=== PATIENT | female | born 1970 | race Caucasian/White ===

== ENCOUNTER 2019-04-15 03:57 | Emergency (ER) | payer SELFPAY ==
[~2019-04-15] VITALS: Ht 160 cm; Wt 70.0 kg
[2019-04-15] MEDS ORDERED: SODIUM CHLORIDE 0.9% 1,000 ML IV ONE (06:23)
[2019-04-15 08:02] LABS: BASOPHILS % 0.4 % (0.0-2.0); EOSINOPHILS % 0.6 % (0.0-5.0); HEMATOCRIT. 39.7 % (36.0-48.0); HEMOGLOBIN. 13.6 g/dL (12.0-16.0); LYMPHOCYTES % 48.6 % (20.0-50.0); MEAN CORPUSCULAR HEMOGLOBIN 28.8 pg (28.0-32.0); MEAN CORPUSCULAR VOLUME 83.8 fL (81.0-99.0); MEAN PLATELET VOLUME 8.2 fl (7.4-10.4); MONOCYTES % 7.7 % (2.0-8.0); NEUTROPHILS % 42.7 % (40.0-76.0); PLATELET 283 x1000/uL (130-400); RED BLOOD CELL COUNT 4.74 mill/uL (4.2-5.4); RED CELL DISTRIBUTION WIDTH 13.8 % (11.6-14.6)
[2019-04-15 08:09] LABS: CHLORIDE 114 mEq/L (98-107)
[2019-04-15 08:13] LABS: ETHANOL BLOOD 91 mg/dL
[2019-04-15 08:52] VITALS: BP 117/72
== END 2019-04-15 09:06 | disposition home or self-care (01) ==
LOC: ER 03:57
DX: F10.129 Alcohol abuse with intoxication, unspecified (principal); F41.9 Anxiety disorder, unspecified; J06.9 Acute upper respiratory infection, unspecified; F07.89 Other personality and behavioral disorders due to known physiological condition; Y90.0 Blood alcohol level of less than 20 mg/100 ml
CPT/HCPCS: 36415; 71045; 80053; 80320; 82962; 84484; 85025; 93005; 99284; J7030; G0480

== ENCOUNTER 2022-05-27 23:10 | Emergency (ER) | payer MEDICARE ==
[~2022-05-27] VITALS: Ht 162.6 cm; Wt 75.0 kg
[2022-05-28] MEDS ORDERED: ASPIRIN 81MG TABLET PO ONE
[2022-05-28] MEDS ORDERED: SODIUM CHLORIDE 0.9% 1,000 ML IV ONE
[2022-05-28 00:41] LABS: BASOPHILS % 0.3 % (0.0-2.0); EOSINOPHILS % 2.1 % (0.0-5.0); HEMATOCRIT. 39.7 % (36.0-48.0); HEMOGLOBIN. 13.7 g/dL (12.0-16.0); LYMPHOCYTES % 50.5 % (20.0-50.0); MEAN CORPUSCULAR HEMOGLOBIN 28.8 pg (28.0-32.0); MEAN CORPUSCULAR VOLUME 83.4 fL (81.0-99.0); MEAN PLATELET VOLUME 8.3 fl (7.4-10.4); MONOCYTES % 6.4 % (2.0-8.0); NEUTROPHILS % 40.7 % (40.0-76.0); PLATELET 252 x1000/uL (130-400); RED BLOOD CELL COUNT 4.75 mill/uL (4.2-5.4); RED CELL DISTRIBUTION WIDTH 12.9 % (11.6-14.6)
[2022-05-28 00:43] LABS: CHLORIDE 102 mEq/L (98-107)
[2022-05-28 00:54] LABS: BETA HYDROXYBUTYRATE 0.2 mMol/L (0.0-0.3)
[2022-05-28 03:03] VITALS: BP 144/65
== END 2022-05-28 03:04 | disposition home or self-care (01) ==
LOC: ER 23:10
DX: E86.0 Dehydration (principal); E78.00 Pure hypercholesterolemia, unspecified; E11.9 Type 2 diabetes mellitus without complications; I10 Essential (primary) hypertension; Z98.890 Other specified postprocedural states
CPT/HCPCS: 36415; 71045; 80053; 82010; 82962; 83605; 83880; 84145; 84484; 85025; 87040; 87804; 93005; 96360; 96361; 99285; J7030; Z7610

== ENCOUNTER 2022-07-16 05:55 | Emergency (ER) | payer MEDICARE ==
[~2022-07-16] VITALS: Ht 165.1 cm; Wt 73.5 kg
[2022-07-16 06:42] VITALS: BP 129/78
[2022-07-16] MEDS ORDERED: ACETAMINOPHEN 325MG TABLET PO ONE (08:45)
[2022-07-16] MEDS ORDERED: BENZ1LOZ73 MT (09:49)
== END 2022-07-16 10:27 | disposition home or self-care (01) ==
LOC: ER 05:55
DX: B34.9 Viral infection, unspecified (principal); I10 Essential (primary) hypertension; E78.00 Pure hypercholesterolemia, unspecified; E11.9 Type 2 diabetes mellitus without complications; Z98.890 Other specified postprocedural states
CPT/HCPCS: 71045; 99283

== ENCOUNTER 2022-11-10 17:38 | Emergency (ER) | payer MEDICAID, MEDICARE ==
[~2022-11-10] VITALS: Ht 162.6 cm; Wt 91.0 kg
[~2022-11-10 17:38] MED LIST: BENZ1LOZ73 MT
[2022-11-10 18:18] LABS: BASOPHILS % 0.2 % (0.0-2.0); EOSINOPHILS % 0.5 % (0.0-5.0); HEMATOCRIT. 43.6 % (36.0-48.0); HEMOGLOBIN. 14.8 g/dL (12.0-16.0); LYMPHOCYTES % 14.9 % (20.0-50.0); MEAN CORPUSCULAR HEMOGLOBIN 28.4 pg (28.0-32.0); MEAN CORPUSCULAR VOLUME 83.9 fL (81.0-99.0); MEAN PLATELET VOLUME 7.9 fl (7.4-10.4); MONOCYTES % 3.6 % (2.0-8.0); NEUTROPHILS % 80.8 % (40.0-76.0); PLATELET 258 x1000/uL (130-400); RED CELL DISTRIBUTION WIDTH 13.5 % (11.6-14.6)
[2022-11-10 18:25] LABS: CHLORIDE 104 mEq/L (98-107)
[2022-11-10 18:35] LABS: CLARITY URINE CLOUDY (CLEAR); COLOR URINE YELLOW (YELLOW); KETONES URINE 1+ (NEGATIVE); LEUKOCYTE ESTERASE URINE 2+ (NEGATIVE); NITRITE URINE NEGATIVE (NEGATIVE); OCCULT BLOOD URINE NEGATIVE (NEGATIVE); PH URINE 5.5 (4.5-8.0); PROTEIN URINE TRACE (NEGATIVE); SPECIFIC GRAVITY URINE 1.027 (1.005-1.030); UROBILINOGEN URINE 0.2 E.U./dL (0.2-1.0)
[2022-11-10 18:54] LABS: HCG SCREEN NEGATIVE
[2022-11-10] MEDS ORDERED: KETOROLAC 15MG/ML VIAL IV ONE (20:15)
[2022-11-10] MEDS ORDERED: CEFTRIAXONE 1GM PREMIX 50 ML IV ONE (20:15)
[2022-11-10] MEDS ORDERED: SODIUM CHLORIDE 0.9% 1,000 ML IV ONE (20:15)
[2022-11-10 20:40] VITALS: BP 121/68
[2022-11-10] MEDS ORDERED: AMLO10TA4 MT (20:46)
[2022-11-10] MEDS ORDERED: NITR-87 MT (20:46)
[2022-11-10] MEDS ORDERED: ATOR20TA65 MT (20:46)
[2022-11-10] MEDS ORDERED: METF-416 MT (20:46)
[2022-11-10] MEDS ORDERED: IBUP-2028 MT (20:46)
== END 2022-11-10 22:22 | disposition home or self-care (01) ==
LOC: ER 17:49
DX: N39.0 Urinary tract infection, site not specified (principal); I10 Essential (primary) hypertension; E78.00 Pure hypercholesterolemia, unspecified; E11.9 Type 2 diabetes mellitus without complications; Z98.890 Other specified postprocedural states; Z76.0 Encounter for issue of repeat prescription
CPT/HCPCS: 36415; 80053; 81003; 82962; 84703; 85025; 93005; 96374; 96375; 99284; J0696; J1885; J7030

== ENCOUNTER 2023-04-13 03:45 | Emergency (ER) | payer MEDICAID, MEDICARE ==
[~2023-04-13] VITALS: Ht 162.6 cm; Wt 70.4 kg
[~2023-04-13 03:45] MED LIST changes: +AMLO10TA4 MT; +ATOR20TA65 MT; +IBUP-2028 MT; +METF-416 MT; +NITR-87 MT
[2023-04-13 04:01] VITALS: O2SAT 99
[2023-04-13 04:25] LABS: BASOPHILS % 0.6 % (0.0-2.0); EOSINOPHILS % 2.3 % (0.0-5.0); HEMATOCRIT. 40.4 % (36.0-48.0); HEMOGLOBIN. 13.6 g/dL (12.0-16.0); LYMPHOCYTES % 51.5 % (20.0-50.0); MEAN CORPUSCULAR HEMOGLOBIN 28.1 pg (28.0-32.0); MEAN CORPUSCULAR HGB CONC 33.6 g/dL (31.0-37.0); MEAN CORPUSCULAR VOLUME 83.5 fL (81.0-99.0); MEAN PLATELET VOLUME 8.1 fl (7.4-10.4); MONOCYTES % 6.8 % (2.0-8.0); NEUTROPHILS % 38.8 % (40.0-76.0); PLATELET 262 x1000/uL (130-400); RED BLOOD CELL COUNT 4.84 mill/uL (4.2-5.4)
[2023-04-13 04:29] LABS: CHLORIDE 103 mEq/L (98-107); INDEX HEMOLYSI 1 (1-3); INDEX ICTERIC 1 (1-4); INDEX LIPEMIC 1 (1-3); POTASSIUM 3.9 mEq/L (3.5-5.1); SODIUM 133 mEq/L (136-145)
[2023-04-13 04:39] LABS: ALANINE AMINOTRANSFERASE 20 IU/L (13-61); ALBUMIN 3.5 g/dL (3.4-5.0); ASPARTATE AMINOTRANSFERASE 12 IU/L (15-37); BILIRUBIN TOTAL 0.4 mg/dL (0.1-1.0); CALCIUM 8.6 mg/dL (8.5-10.1); CARBON DIOXIDE 24 mEq/L (21-32); CREATININE 0.3 mg/dL (0.6-1.3); GLUCOSE 304 mg/dL (70-105); PROTEIN TOTAL 7.4 g/dL (6.0-8.3); TROPONIN I HIGH SENSITIVITY 13 ng/L (<54); UREA NITROGEN BLOOD 13 mg/dL (7-21)
[2023-04-13] MEDS ORDERED: ONDANSETRON HCL 4MG/2ML INJ IV STA (06:10)
[2023-04-13] MEDS ORDERED: SODIUM CHLORIDE 0.9% 1,000 ML IV ONE (06:15)
[2023-04-13] MEDS ORDERED: INSULIN REGULAR (HUMULIN R) 300UNITS/3ML VIAL SUBCUT ONE (06:45)
[2023-04-13 06:50] LABS: TROPONIN I HIGH SENSITIVITY 13 ng/L (<54)
[2023-04-13 06:56] LABS: BASOPHILS % 0.6 % (0.0-2.0); HEMATOCRIT. 38.5 % (36.0-48.0); HEMOGLOBIN. 13.2 g/dL (12.0-16.0); MEAN CORPUSCULAR HEMOGLOBIN 28.5 pg (28.0-32.0); MEAN CORPUSCULAR HGB CONC 34.3 g/dL (31.0-37.0); MEAN PLATELET VOLUME 7.9 fl (7.4-10.4); MONOCYTES % 7.8 % (2.0-8.0); NEUTROPHILS % 45.6 % (40.0-76.0); PLATELET 242 x1000/uL (130-400); RED BLOOD CELL COUNT 4.64 mill/uL (4.2-5.4); RED CELL DISTRIBUTION WIDTH 12.9 % (11.6-14.6); WHITE BLOOD COUNT 7.9 x1000/uL (4.5-11.0)
[2023-04-13 08:09] LABS: CLARITY URINE CLEAR (CLEAR); COLOR URINE YELLOW (YELLOW); GLUCOSE URINE 3+ (NEGATIVE); KETONES URINE NEGATIVE (NEGATIVE); LEUKOCYTE ESTERASE URINE 1+ (NEGATIVE); NITRITE URINE NEGATIVE (NEGATIVE); OCCULT BLOOD URINE NEGATIVE (NEGATIVE); PROTEIN URINE NEGATIVE (NEGATIVE); SPECIFIC GRAVITY URINE 1.019 (1.005-1.030); UROBILINOGEN URINE 0.2 E.U./dL (0.2-1.0)
[2023-04-13] MEDS ORDERED: INSULIN REGULAR (HUMULIN R) 300UNITS/3ML VIAL SUBCUT NR (08:30)
[2023-04-13 08:42] LABS: BACTERIA URINE TRACE; SQUAMOUS EPITHELIAL CELL URINE 1+ /lpf (RARE/1+)
[2023-04-13 08:43] LABS: RBC URINE 0-2 /hpf (0-2); WBC URINE 0-2 /hpf (0-2); YEAST URINE RARE
[2023-04-13 09:29] VITALS: BP 123/73; PULSE 63; RESP 18; TEMP 98.4
== END 2023-04-13 09:32 | disposition home or self-care (01) ==
LOC: ER 03:45
DX: E11.65 Type 2 diabetes mellitus with hyperglycemia (principal); R07.89 Other chest pain; I10 Essential (primary) hypertension; E78.00 Pure hypercholesterolemia, unspecified; Z98.890 Other specified postprocedural states
CPT/HCPCS: 80053; 81003; 82010; 82962; 85025; 84484; 36415; 71045; 93005; 96361; 96372; 96374; 99285; J1815; J2405; J7030; Z7610 ×2

== ENCOUNTER 2024-01-14 14:47 | Emergency (ER) | payer MEDICAID ==
[~2024-01-14] VITALS: Ht 162.6 cm; Wt 69.0 kg
[2024-01-14 15:07] VITALS: TEMP 98.5; O2SAT 98
[2024-01-14 15:42] LABS: BASOPHILS % 0.4 % (0.0-2.0); EOSINOPHILS % 1.5 % (0.0-5.0); HEMATOCRIT. 40.3 % (36.0-48.0); LYMPHOCYTES % 37.7 % (20.0-50.0); MEAN CORPUSCULAR HEMOGLOBIN 27.5 pg (28.0-32.0); MEAN CORPUSCULAR HGB CONC 32.3 g/dL (31.0-37.0); MEAN CORPUSCULAR VOLUME 85.1 fL (81.0-99.0); MEAN PLATELET VOLUME 8.2 fl (7.4-10.4); MONOCYTES % 6.4 % (2.0-8.0); PLATELET 285 x1000/uL (130-400); RED BLOOD CELL COUNT 4.73 mill/uL (4.2-5.4); RED CELL DISTRIBUTION WIDTH 13.2 % (11.6-14.6); WHITE BLOOD COUNT 11.1 x1000/uL (4.5-11.0)
[2024-01-14 15:47] LABS: CARBON DIOXIDE 23 mEq/L (21-32); CHLORIDE 105 mEq/L (98-107); POTASSIUM 3.8 mEq/L (3.5-5.1); SODIUM 138 mEq/L (136-145)
[2024-01-14 15:48] LABS: CALCIUM 10.1 mg/dL (8.7-10.4)
[2024-01-14 15:52] LABS: CREATININE 0.5 mg/dL (0.6-1.0); GLUCOSE 153 mg/dL (70-105)
[2024-01-14 15:53] LABS: UREA NITROGEN BLOOD 14 mg/dL (9-23)
[2024-01-14 16:13] LABS: TROPONIN I HIGH SENSITIVITY < 4 ng/L (3.0-34)
[2024-01-14 18:21] LABS: CLARITY URINE CLEAR (CLEAR); COLOR URINE YELLOW (YELLOW); GLUCOSE URINE NEGATIVE (NEGATIVE); KETONES URINE TRACE (NEGATIVE); LEUKOCYTE ESTERASE URINE 1+ (NEGATIVE); NITRITE URINE NEGATIVE (NEGATIVE); OCCULT BLOOD URINE NEGATIVE (NEGATIVE); PH URINE 5.5 (4.5-8.0); PROTEIN URINE NEGATIVE (NEGATIVE); SPECIFIC GRAVITY URINE 1.038 (1.005-1.030)
[2024-01-14 18:42] LABS: BACTERIA URINE NONE SEEN; RBC URINE NONE SEEN /hpf (0-2); SQUAMOUS EPITHELIAL CELL URINE FEW /lpf (RARE/1+); WBC URINE 15-25 /hpf (0-2)
[2024-01-14] MEDS ORDERED: CEPH500C2 MT (18:52)
[2024-01-14] MEDS: CEFTRIAXONE SODIUM 1G VIAL IM ONE (19:20)
[2024-01-14] MEDS: LIDOCAINE HCL 1% 20ML VIAL (Pyxis) INJ INFIL ONE (19:20)
[2024-01-14 19:21] VITALS: BP 100/60; PULSE 65; RESP 16
== END 2024-01-14 19:22 | disposition home or self-care (01) ==
LOC: ER 14:54
DX: N10 Acute pyelonephritis (principal); E11.9 Type 2 diabetes mellitus without complications; E78.00 Pure hypercholesterolemia, unspecified; I10 Essential (primary) hypertension
CPT/HCPCS: 80048; 81003; 81025; 82962; 85025; 87086; 84484; 36415; 71045; 93005; 96372; 99285; J0696; J3490; Z7610

== ENCOUNTER 2024-04-13 05:45 | Emergency (ER) | payer SELFPAY ==
[~2024-04-13] VITALS: Ht 165.1 cm; Wt 65.0 kg
[~2024-04-13 05:45] MED LIST changes: +CEPH500C2 MT
[2024-04-13 06:22] LABS: CHLORIDE 104 mEq/L (98-107); POTASSIUM 4.1 mEq/L (3.5-5.1); SODIUM 139 mEq/L (136-145)
[2024-04-13 06:23] VITALS: TEMP 98.5; O2SAT 99
[2024-04-13 06:23] LABS: BASOPHILS % 0.2 % (0.0-2.0); CALCIUM 9.8 mg/dL (8.7-10.4); CARBON DIOXIDE 28 mEq/L (21-32); EOSINOPHILS % 1.3 % (0.0-5.0); HEMATOCRIT. 40.1 % (36.0-48.0); HEMOGLOBIN. 13.5 g/dL (12.0-16.0); LYMPHOCYTES % 18.2 % (20.0-50.0); MEAN CORPUSCULAR HEMOGLOBIN 28.4 pg (28.0-32.0); MEAN CORPUSCULAR HGB CONC 33.6 g/dL (31.0-37.0); MEAN CORPUSCULAR VOLUME 84.7 fL (81.0-99.0); MEAN PLATELET VOLUME 7.7 fl (7.4-10.4); MONOCYTES % 5.9 % (2.0-8.0); NEUTROPHILS % 74.4 % (40.0-76.0); PLATELET 294 x1000/uL (130-400); RED BLOOD CELL COUNT 4.74 mill/uL (4.2-5.4); RED CELL DISTRIBUTION WIDTH 13.7 % (11.6-14.6); WHITE BLOOD COUNT 12.8 x1000/uL (4.5-11.0)
[2024-04-13 06:27] LABS: HCG SCREEN NEGATIVE
[2024-04-13 06:28] LABS: CREATININE 0.6 mg/dL (0.6-1.0); GLUCOSE 131 mg/dL (70-105); UREA NITROGEN BLOOD 10 mg/dL (9-23)
[2024-04-13 06:29] LABS: TROPONIN I HIGH SENSITIVITY 4 ng/L (3.0-34)
[2024-04-13 06:30] LABS: ALANINE AMINOTRANSFERASE 16 IU/L (10-49); ALBUMIN 4.6 g/dL (3.2-4.8); ASPARTATE AMINOTRANSFERASE 19 IU/L (<34); BILIRUBIN DIRECT 0.2 mg/dL (<=3.0); BILIRUBIN TOTAL 0.4 mg/dL (0.1-1.0); PROTEIN TOTAL 7.5 g/dL (6.0-8.3)
[2024-04-13] MEDS: PANTOPRAZOLE SODIUM 40 MG/VIAL IV STA (06:59)
[2024-04-13] MEDS: ONDANSETRON HCL 4MG/2ML INJ IV STA (06:59)
[2024-04-13] MEDS: MORPHINE SULFATE 4 MG/ML INJ (FOR IV/IM USE) IV STA (07:02)
[2024-04-13] MEDS: MAGNESIUM/ALUMINUM HYDROXIDE/SIMETHICONE 30ML UDC PO STA (07:03)
[2024-04-13] MEDS ORDERED: DICY20TA2 MT (08:48)
[2024-04-13] MEDS ORDERED: ONDA-239 PO (08:48)
[2024-04-13 09:17] VITALS: BP 132/77; PULSE 77; RESP 14; O2SAT 99
== END 2024-04-13 09:17 | disposition home or self-care (01) ==
LOC: ER 05:45
DX: R10.9 Unspecified abdominal pain (principal); R11.2 Nausea with vomiting, unspecified; R51.9 Headache, unspecified; I10 Essential (primary) hypertension; E78.00 Pure hypercholesterolemia, unspecified; E11.9 Type 2 diabetes mellitus without complications; Z79.899 Other long term (current) drug therapy; Z98.890 Other specified postprocedural states
CPT/HCPCS: 80076; 80048; 84703; 83690; 85025; 84484; 36415; 74177; 93005; 96365; 96375; 99285; J2405; J2470; J2270; Z7610 ×3

== ENCOUNTER 2024-07-07 23:33 | Emergency (ER) | payer MEDICAID ==
[~2024-07-07] VITALS: Ht 162.6 cm; Wt 64.0 kg
[~2024-07-07 23:33] MED LIST changes: +DICY20TA2 MT; +DULA0.75 SQ; +ONDA-239 PO
[2024-07-07 23:40] VITALS: O2SAT 98
[2024-07-07 23:51] VITALS: BP 129/75; PULSE 94; RESP 16; TEMP 100.5; O2SAT 99
[2024-07-08] MEDS: ONDANSETRON HCL 4MG TABLET PO ONE (00:15)
[2024-07-08 01:36] LABS: CLARITY URINE CLEAR (CLEAR); COLOR URINE YELLOW (YELLOW); GLUCOSE URINE NEGATIVE (NEGATIVE); KETONES URINE NEGATIVE (NEGATIVE); LEUKOCYTE ESTERASE URINE TRACE (NEGATIVE); NITRITE URINE NEGATIVE (NEGATIVE); OCCULT BLOOD URINE NEGATIVE (NEGATIVE); PROTEIN URINE NEGATIVE (NEGATIVE); SPECIFIC GRAVITY URINE 1.012 (1.005-1.030); UROBILINOGEN URINE 0.2 E.U./dL (0.2-1.0)
[2024-07-08 01:51] LABS: BASOPHILS % 0.3 % (0.0-2.0); EOSINOPHILS % 0.1 % (0.0-5.0); HEMATOCRIT. 38.8 % (36.0-48.0); HEMOGLOBIN. 13.2 g/dL (12.0-16.0); LYMPHOCYTES % 17.9 % (20.0-50.0); MEAN CORPUSCULAR HEMOGLOBIN 28.8 pg (28.0-32.0); MEAN CORPUSCULAR HGB CONC 34.1 g/dL (31.0-37.0); MEAN CORPUSCULAR VOLUME 84.5 fL (81.0-99.0); MEAN PLATELET VOLUME 7.7 fl (7.4-10.4); MONOCYTES % 5.7 % (2.0-8.0); PLATELET 255 x1000/uL (130-400); RED BLOOD CELL COUNT 4.59 mill/uL (4.2-5.4); RED CELL DISTRIBUTION WIDTH 13.2 % (11.6-14.6); WHITE BLOOD COUNT 9.1 x1000/uL (4.5-11.0)
[2024-07-08 01:56] LABS: CHLORIDE 107 mEq/L (98-107); POTASSIUM 3.8 mEq/L (3.5-5.1); SODIUM 137 mEq/L (136-145)
[2024-07-08 01:57] LABS: CARBON DIOXIDE 24 mEq/L (21-32)
[2024-07-08 01:58] LABS: CALCIUM 9.4 mg/dL (8.7-10.4)
[2024-07-08 02:03] LABS: CREATININE 0.5 mg/dL (0.6-1.0); GLUCOSE 112 mg/dL (70-105); UREA NITROGEN BLOOD 8 mg/dL (9-23)
[2024-07-08 02:05] LABS: ALANINE AMINOTRANSFERASE 13 IU/L (10-49); ALBUMIN 4.4 g/dL (3.2-4.8); ASPARTATE AMINOTRANSFERASE 17 IU/L (<34); BILIRUBIN DIRECT 0.1 mg/dL (<=3.0); BILIRUBIN TOTAL 0.4 mg/dL (0.1-1.0); PROTEIN TOTAL 7.6 g/dL (6.0-8.3)
[2024-07-08] MEDS: ONDANSETRON HCL 4MG TABLET PO NR (02:30)
[2024-07-08 02:32] LABS: SQUAMOUS EPITHELIAL CELL URINE FEW /lpf (RARE/1+)
[2024-07-08 02:33] LABS: RBC URINE 0-2 /hpf (0-2); WBC URINE 0-2 /hpf (0-2)
[2024-07-08 02:34] LABS: BACTERIA URINE TRACE
[2024-07-08] MEDS: KETOROLAC 15MG/ML VIAL IM ONE (03:45)
== END 2024-07-08 04:56 | disposition home or self-care (01) ==
LOC: ER 23:49
DX: K80.20 Calculus of gallbladder without cholecystitis without obstruction (principal); R05.9 Cough, unspecified; M79.10 Myalgia, unspecified site; I10 Essential (primary) hypertension; E11.9 Type 2 diabetes mellitus without complications; E78.00 Pure hypercholesterolemia, unspecified; Z86.73 Personal history of transient ischemic attack (TIA), and cerebral infarction without residual deficits; Z79.899 Other long term (current) drug therapy; Z79.84 Long term (current) use of oral hypoglycemic drugs
CPT/HCPCS: 99285; 71045; 80076; 80048; 83690; 85025; 36415; 76705; 81003; 96372; Q0162; J1885

== ENCOUNTER 2024-12-24 12:03 | Emergency (ER) | payer OTHER ==
[~2024-12-24] VITALS: Ht 165.1 cm; Wt 65.0 kg
[~2024-12-24 12:03] MED LIST changes: +AMLO-905 MT; -AMLO10TA4 MT
[2024-12-24 13:06] LABS: BASOPHILS % 0.5 % (0.0-2.0); EOSINOPHILS % 1.8 % (0.0-5.0); HEMATOCRIT. 37.5 % (36.0-48.0); HEMOGLOBIN. 12.7 g/dL (12.0-16.0); LYMPHOCYTES % 22.8 % (20.0-50.0); MEAN CORPUSCULAR HEMOGLOBIN 28.1 pg (28.0-32.0); MEAN CORPUSCULAR HGB CONC 33.9 g/dL (31.0-37.0); MEAN PLATELET VOLUME 7.7 fl (7.4-10.4); MONOCYTES % 10.6 % (2.0-8.0); NEUTROPHILS % 64.3 % (40.0-76.0); PLATELET 234 x1000/uL (130-400); RED BLOOD CELL COUNT 4.52 mill/uL (4.2-5.4); RED CELL DISTRIBUTION WIDTH 13.4 % (11.6-14.6); WHITE BLOOD COUNT 7.8 x1000/uL (4.5-11.0)
[2024-12-24 13:19] LABS: CARBON DIOXIDE 24 mEq/L (21-32); CHLORIDE 106 mEq/L (98-107); POTASSIUM 3.7 mEq/L (3.5-5.1); SODIUM 140 mEq/L (136-145)
[2024-12-24 13:20] LABS: CALCIUM 8.5 mg/dL (8.7-10.4)
[2024-12-24 13:25] LABS: CREATININE 0.6 mg/dL (0.6-1.0); GLUCOSE 134 mg/dL (70-105); TROPONIN I HIGH SENSITIVITY 6 ng/L (3.0-34); UREA NITROGEN BLOOD 11 mg/dL (9-23)
[2024-12-24] MEDS: IPRATROPIUM BROMIDE (0.02%) 0.5MG/2.5ML NEB HHN STA (13:46)
[2024-12-24] MEDS: ALBUTEROL (0.083%) 2.5MG/3ML NEB HHN STA (13:46)
[2024-12-24] MEDS: METHYLPREDNISOLONE SOD SUCC 125MG/2ML (ACT-O-VIAL) IV STA (13:52)
[2024-12-24] MEDS: KETOROLAC 30MG/ML VIAL IM ONE (13:52)
[2024-12-24] MEDS: ONDANSETRON 4MG ODT PO ONE (13:52)
[2024-12-24 15:49] VITALS: PULSE 72; RESP 17; O2SAT 98
[2024-12-24] MEDS ORDERED: BENZ100C86 MT (16:48)
[2024-12-24] MEDS ORDERED: KETO10TA2 MT (16:48)
[2024-12-24] MEDS ORDERED: ONDA-239 PO (16:48)
[2024-12-24] MEDS ORDERED: ALBU18HF2 IH (16:52)
[2024-12-24 17:02] VITALS: BP 116/55; PULSE 85; RESP 15; TEMP 37; O2SAT 100
== END 2024-12-24 17:03 | disposition home or self-care (01) ==
LOC: ER 13:10
DX: J06.9 Acute upper respiratory infection, unspecified (principal); R05.9 Cough, unspecified; R09.81 Nasal congestion; J45.909 Unspecified asthma, uncomplicated; R11.2 Nausea with vomiting, unspecified; E11.9 Type 2 diabetes mellitus without complications; Z79.84 Long term (current) use of oral hypoglycemic drugs; Z79.899 Other long term (current) drug therapy
CPT/HCPCS: 80048; 85025; 84484; 36415; 71045; 94644; 96372; 96374; 99285; Q0162; J1885; J2919; Z7610 ×3; 94070; 94640; 94664